=== PATIENT | male | born 1985 | race Caucasian/White ===

== ENCOUNTER 2021-08-22 23:28 | Emergency (ER) | payer SELFPAY ==
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
[2021-08-23 00:06] VITALS: BMI 28.8
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
--- NOTE | 2021-08-23 00:47 | PC.NURSE ---
Refer to Cardiopulmonary Arrest Flow Sheet 2 units PRBC spiked 2 bags of IV NS spiked 5 Amps Epi administered
--- NOTE | 2021-08-23 01:24 | PC.NURSE ---
hotel security officer in ER and making arrangements.
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
== END 2021-08-23 02:18 | disposition expired ==
PROVIDERS: Emergency Provider Emergency Medicine
DX: S31.639A Puncture wound without foreign body of abdominal wall, unspecified quadrant with penetration into peritoneal cavity, initial encounter (principal); S31.133A Puncture wound of abdominal wall without foreign body, right lower quadrant without penetration into peritoneal cavity, initial encounter; S81.839A Puncture wound without foreign body, unspecified lower leg, initial encounter; S61.431A Puncture wound without foreign body of right hand, initial encounter; X95.9XXA Assault by unspecified firearm discharge, initial encounter; Z65.4 Victim of crime and terrorism
CPT/HCPCS: 36430; 71045; 86900; 86920; 92950; 99285; 99291; 99292; J0171; P9016